=== PATIENT | female | born 2000 | race African-American/Black ===

== ENCOUNTER 2020-06-07 13:40 | Emergency (ER) | payer OTHER, SELFPAY ==
--- NOTE | 2020-06-07 13:44 | ED.FEMALEGU ---
HPI - Female Genitourinary General Chief complaint: Urogenital-Female Stated complaint: uti Time Seen by Provider: 06/07/20 13:52 Source: patient and RN notes reviewed Mode of arrival: ambulatory Limitations: other (MR, autism spectrum, mother present) History of Present Illness HPI Narrative: 20-year-old female with a history of of autism spectrum and MR and presents with concern for possible urinary tract infection. Mother reports she has been experiencing insomnia for 6 days, and has had urine incontinence for 2 days. She denies any fever, complaints of pain, vomiting. Reports normal bowel movements. Reports normal appetite. MD elicited complaint: UTI Related Data Home Medications Medication Instructions Recorded Confirmed buspirone 10 mg PO BID 06/07/20 06/07/20 clonidine HCl 0.1 mg PO DAILY 06/07/20 06/07/20 clonidine HCl 0.2 mg PO HS 06/07/20 06/07/20 lorazepam 0.5 mg PO HS 06/07/20 06/07/20 norethindrone-ethin estradiol 1 tablet PO DAILY 06/07/20 06/07/20 [Nortrel 1/35 (28)] Allergies Allergy/AdvReac Type Severity Reaction Status Date / Time No Known Allergies Allergy Verified 06/07/20 13:57 Review of Systems Review of Systems: Narrative: CONSTITUTIONAL: denies fever, chills or decreased activity HEENT: Denies any eye discharge or redness. Denies any ear, mouth, or throat pain CHEST: denies any cough, wheezing, or difficulty breathing CARDIOVASCULAR: Denies any rapid heart rate or cool extremities ABDOMINAL: Denies any vomiting, diarrhea, or poor feeding : Denies any dysuria, decreased urine frequency. Reports urine incontinence SKIN: Denies rash MUSCULOSKELETAL: Denies any extremity disuse or swelling NEURO: Denies any lethargy, irritability, or seizures. Reports insomnia All systems reviewed & are unremarkable except as noted in HPI and below PMFSH Comments At time of signature, agree with nursing past medical, surgical, social and family history. There is no relevant family history pertinent to the presenting complaint Exam Narrative: Exam Narrative: GENERAL: Well-appearing, well-nourished, and in no acute distress. HEAD: Normocephalic. EYES: PERRLA, conjunctivae clear. NECK: Supple. No lymphadenopathy CHEST: Clear to auscultation. No respiratory distress. HEART: Regular rate and rhythm. No murmur heard. Normal peripheral pulses. ABDOMEN: Soft, nontender upon palpation, nondistended, normal active bowel sounds, no palpable or pulsatile masses, no guarding. No CVA tenderness SKIN: Warm, dry, no rash. NEURO: Alert and oriented x3. PSYCH: Normal mood and affect Course Course Emergency Course: Patient is aware of diagnosis, understands and agrees to treatment plan. Anticipatory guidance given. Patient agrees to follow-up as directed and is aware of reasons to seek care at the emergency department. Portions of this record may have been created with voice recognition software Vital Signs Vital signs: Vital Signs Temperature 98.1 F 06/07/20 13:48 Pulse Rate 88 06/07/20 13:48 Respiratory Rate 16 06/07/20 13:48 Blood Pressure 138/78 06/07/20 13:48 Pulse Oximetry 100 06/07/20 13:48 Temperature 98.1 F 06/07/20 13:48 Pulse Rate 88 06/07/20 13:48 Respiratory Rate 16 06/07/20 13:48 Blood Pressure 138/78 06/07/20 13:48 Pulse Oximetry 100 06/07/20 13:48 Reviewed. MDM - Female Genitourinary MDM Narrative Medical decision making narrative: Exam findings and UA show no acute concerns or changes; patient is non-toxic appearing and is in no distress. Patient is appropriate for outpatient treatment and follow-up. Differential Diagnosis Differential diagnosis: Likely urinary tract infection and cystitis Lab Data Attestation: I reviewed the patient's lab results. Labs: Urine Glucose Negative Reference Range: Negative Urine Bilirubin Negative Reference Range: Negative Urine Ketone Negative Refere
[2020-06-07 13:48] VITALS: BP 138/78; PULSE 88; RESP 16; TEMP 36.7; O2SAT 100
== END 2020-06-07 14:14 | disposition home or self-care (01) ==
PROVIDERS: Emergency Provider Nurse Practitioner
DX: N39.0 Urinary tract infection, site not specified (principal); F84.0 Autistic disorder
CPT/HCPCS: 81003; 87086; 87088; 99213; G0463

== ENCOUNTER 2021-04-29 18:19 | Emergency (ER) | payer OTHER, SELFPAY ==
--- NOTE | 2021-04-29 18:26 | ED.FEMALEGU ---
HPI - Female Genitourinary General Chief complaint: Urogenital-Female Stated complaint: uti Time Seen by Provider: 04/29/21 18:26 Source: patient Mode of arrival: ambulatory Limitations: no limitations History of Present Illness HPI Narrative: PATIENT PRESENTS WITH URINARY URGENCY AND FREQUENCY WELL BURNING. NO VAGINAL DISCHARGE NO ABDOMINAL PAIN NO PELVIC PAIN NO CONCERN FOR STD DARK URINE FOR THE PAST 2 DAYS. MD elicited complaint: dysuria and UTI Related Data Home Medications Medication Instructions Recorded Confirmed buspirone 10 mg PO BID 06/07/20 04/29/21 clonidine HCl 0.1 mg PO DAILY 06/07/20 04/29/21 clonidine HCl 0.2 mg PO HS 06/07/20 04/29/21 lorazepam 0.5 mg PO HS 06/07/20 04/29/21 norethindrone-ethin estradiol 1 tablet PO DAILY 06/07/20 04/29/21 [Nortrel 1/35 (28)] Allergies Allergy/AdvReac Type Severity Reaction Status Date / Time No Known Allergies Allergy Verified 04/29/21 18:39 Review of Systems Review of Systems: CONSTITUTIONAL: Denies fever, chills, or sweats. EYES: Denies visual changes, redness, or discharge. ENT: Denies rhinorrhea, congestion, sore throat, or otalgia. CARDIOVASCULAR: Denies chest pain, palpitations, or edema. RESPIRATORY: Denies cough or dyspnea. GASTROINTESTINAL: Denies abdominal pain, nausea, vomiting, or diarrhea. GENITOURINARY: Denies dysuria or hematuria. SKIN: Denies rash or itching. MUSCULOSKELETAL: Denies back pain, joint pain, or myalgia. NEUROLOGIC: Denies headache, numbness, or weakness. PSYCHIATRIC: Denies anxiety or depression. PMFSH Comments At time of signature, agree with nursing past medical, surgical, social and family history. There is no relevant family history pertinent to the presenting complaint Exam Narrative: GENERAL: Well-appearing, well-nourished, and in no acute distress. HEAD: Normocephalic, atraumatic. EYES: PERRLA and EOMI. ENT: Nares clear, no rhinorrhea or epistaxis. Mucous membranes moist. NECK: Supple. CHEST: Clear to auscultation. No respiratory distress. HEART: Regular rate and rhythm. No murmur heard. Normal peripheral pulses. ABDOMEN: Soft, nontender, nondistended, normal active bowel sounds. EXTREMITIES: Normal range of motion. No edema. SKIN: Warm, dry, no rash. NEURO: No focal deficits. Alert and oriented x3. [place] Coma Scale Eye Opening: Spontaneous 4 [place] Coma Scale Motor: Obeys Commands 6 [place] Coma Scale Verbal: Oriented 5 [place] Coma Scale Total 15 Course Vital Signs Vital signs: Vital Signs Temperature 37.4 C 04/29/21 18:27 Pulse Rate 116 H 04/29/21 18:27 Respiratory Rate 20 04/29/21 18:27 Blood Pressure 137/83 04/29/21 18:27 Pulse Oximetry 100 04/29/21 18:27 Temperature 37.4 C 04/29/21 18:27 Pulse Rate 116 H 04/29/21 18:27 Respiratory Rate 20 04/29/21 18:27 Blood Pressure 137/83 04/29/21 18:27 Pulse Oximetry 100 04/29/21 18:27 Critical dx considered and discussed with pt. Educated patient on red flag s/s and to go to ED if s/s occur. Discussed with pt when to return to [facility] or primary care provider. Pt gave verbal undertstanding, all questions were answered, and pt was agreeable to plan regarding diagnosis, Regarding diagnostic results, Regarding treatment plan, Regarding prescription, Patient indicated understanding of instructions. Critical dx considered and discussed with pt. Educated patient on red flag s/s and to go to ED if s/s occur. Discussed with pt when to return to [facility] or primary care provider. Pt gave verbal undertstanding, all questions were answered, and pt was agreeable to plan.. Addressed elevated BP today. Today's blood pressure higher than recommended range. Discussed importance of follow -up with PCP and possible moth exterminator effects/cardiovascular events related to HTN. Currently patient denies headache, dizziness, vision changes, CP or shortness of breath. MDM - Female Genitourinary Differential Diagnosis Differential d
[2021-04-29 18:27] VITALS: BP 137/83; PULSE 116; RESP 20; TEMP 37.4; O2SAT 100
== END 2021-04-29 18:55 | disposition home or self-care (01) ==
PROVIDERS: Emergency Provider Nurse Practitioner Family
DX: N39.0 Urinary tract infection, site not specified (principal); F84.0 Autistic disorder; F79 Unspecified intellectual disabilities
CPT/HCPCS: 81003; 87086; 87088; 99213; G0463

== ENCOUNTER 2022-04-16 15:01 | Emergency (ER) | payer OTHER, SELFPAY ==
[2022-04-16 15:10] VITALS: BP 137/78; PULSE 91; RESP 20; TEMP 36.4; O2SAT 100
--- NOTE | 2022-04-16 15:36 | ED.FEMALEGU ---
HPI - Female Genitourinary General Chief complaint: Urogenital-Female Stated complaint: Urinary Problem Time Seen by Provider: 04/16/22 15:35 Source: patient, RN notes reviewed and old records reviewed Mode of arrival: ambulatory Limitations: no limitations History of Present Illness HPI Narrative: 22 year old female accompanied by mother who states that patient is MR with autism and ihas minimal verbalization mother states. Mother reports that patinet seems to have altered LOC and is not acting right and not following simple directions she usually does. Mother reports that patient is on scheduled bathroom breaks and is incontinent as her normal. Mother reports that patient has not had any fevers.Previous history of UTI with these behaviors. MD elicited complaint: UTI , urinary incontinence and other (difference in LOC) Related Data Home Medications Medication Instructions Recorded Confirmed buspirone 10 mg tablet 10 mg PO BID 06/07/20 04/29/21 clonidine HCl 0.1 mg tablet 0.1 mg PO DAILY 06/07/20 04/29/21 clonidine HCl 0.1 mg tablet 0.2 mg PO HS 06/07/20 04/29/21 lorazepam 0.5 mg tablet 0.5 mg PO HS 06/07/20 04/29/21 norethindrone 1 mg-ethinyl 1 tablet PO DAILY 06/07/20 04/29/21 estradiol 35 mcg tablet (Nortrel) Allergies Allergy/AdvReac Type Severity Reaction Status Date / Time No Known Allergies Allergy Verified 04/29/21 18:39 Review of Systems Review of Systems: CONSTITUTIONAL: Denies fever, chills, or sweats. EYES: Denies visual changes, redness, or discharge. ENT: Denies rhinorrhea, congestion, sore throat, or otalgia. CARDIOVASCULAR: Denies chest pain, palpitations, or edema. RESPIRATORY: Denies cough or dyspnea. GASTROINTESTINAL: Denies abdominal pain, nausea, vomiting, or diarrhea. GENITOURINARY: Denies dysuria or hematuria.is incontinent at times SKIN: Denies rash or itching. MUSCULOSKELETAL: Denies back pain, joint pain, or myalgia. NEUROLOGIC: Denies headache, numbness, or weakness. PSYCHIATRIC: Denies anxiety or depression.changes in LOC and ability to follow simple directions she normally follows All systems reviewed & are unremarkable except as noted in HPI and below [facility] Past Medical History Medical History (Updated 04/17/22 @ 22:24 by Michelle Banerjee NP) Autism Ear infection Mental deficiency UTI (urinary tract infection) Surgical History Surgical History (Updated 04/17/22 @ 22:24 by Michelle Banerjee NP) History of placement of ear tubes Social History Social History (Updated 04/17/22 @ 22:22 by Michelle Banerjee NP) Smoking status: Never smoker Alcohol intake: never Substance use: never Living arrangements: with family Gender identity (if verbalized by the patient): Female Comments At time of signature, agree with nursing past medical, surgical, social and family history. There is no relevant family history pertinent to the presenting complaint Exam Narrative: GENERAL: Well-appearing, well-nourished, and in no acute distress. HEAD: Normocephalic, atraumatic. EYES: PERRLA and EOMI. ENT: Nares clear, no rhinorrhea or epistaxis. Mucous membranes moist.TM's normal with good light reflex, throat pink with no lesions or exudates or tonsil swelling NECK: Supple.no lympohadenopathy CHEST: Clear to auscultation. No respiratory distress.SAO2 100% on room air HEART: Regular rate and rhythm. No murmur heard. Normal peripheral pulses. ABDOMEN: Soft, nontender, nondistended, normal active bowel sounds.no noted CVA tenderness on exam EXTREMITIES: Normal range of motion. No edema. SKIN: Warm, dry, no rash. NEURO: No focal deficits. Alert and oriented x3. Course Course Level of Care: [facility] Visit Vital Signs Vital signs: Vital Signs Temperature 36.4 C 04/16/22 15:10 Pulse Rate 91 04/16/22 15:10 Respiratory Rate 20 04/16/22 15:10 Blood Pressure 137/78 04/16/22 15:10 Pulse Oximetry 100 04/16/22 15:10 Oxygen Delivery Room Air 04/16/22 15:10
== END 2022-04-16 15:57 | disposition home or self-care (01) ==
PROVIDERS: Emergency Provider Registered Nurse; PCP Family Medicine
DX: N39.0 Urinary tract infection, site not specified (principal); F84.0 Autistic disorder; F79 Unspecified intellectual disabilities
CPT/HCPCS: 81003; 87086; 87088; 99213; G0463